=== PATIENT | female | born 1985 | race American Indian/Alaskan Native ===

== ENCOUNTER 2017-09-28 09:46 | Emergency (ER) | payer MEDICAID ==
[2017-09-28 09:52] VITALS: BP 108/61
[2017-09-28 10:18] LABS: Bilirubin,Urine NEG (Negative); Blood,Urine NEG (Negative); Ketones,Urine NEG (Negative); Leukocyte Esterase,Urine MOD (Negative); Mucus,Urine FEW /HPF; Nitrite,Urine NEG (Negative); Protein,Urine <15 mg/dL mg/dL (Negative); Urobilinogen,Urine < 2.0 mg/dL (<2.0)
[2017-09-28] MEDS ORDERED: TORADOL IV ONE (10:28)
[2017-09-28] MEDS ORDERED: ZOFRAN IV ONE (10:28)
[2017-09-28] MEDS ORDERED: NACL 0.9% 1000 ML 1,000 ML IV ONE (10:28)
--- NOTE | 2017-09-28 11:08 | Emergency Department Report ---
ED Abdominal Pain HPI - General Chief Complaint: Abdominal Pain Stated Complaint: NAUSEA, KIDNEY PROBLEMS Time Seen by Provider: 09/28/17 10:04 Source: patient Mode of arrival: Ambulatory Limitations: No Limitations - History of Present Illness Initial Comments: pt is a 32 y/o aaf with hx of renal stones requiring lithotripsy who presents with right cva tenderness with n/v x 4 days associated symptoms include urinary urgency frequency and dysuria ,pt denies fever or chills , nausea but no vomiting. MD Complaint: abdominal pain, flank pain Onset/Timin -: days(s) Location: bilateral flank Radiation: none Migration to: suprapubic Severity: moderate Severity scale (0 -10): 4 Quality: aching, sharp Consistency: constant Improves With: nothing Worsens With: other (voiding ) Associated Symptoms: nausea, dysuria. denies: vomiting, diarrhea, fever, constipation, hematemesis, hematochezia, melena, hematuria, anorexia, syncope - Related Data LMP Date: 09/22/17 LMP (females 10-50): 3 weeks Previous Rx's Medication Instructions Recorded Last Taken Type Fluconazole [Diflucan TAB] 150 mg PO ONCE #1 tablet 09/02/16 Unknown Rx HYDROcodone/APAP 5-325 [[place] 1 - 2 each PO Q6HR PRN #14 tablet 09/02/16 Unknown Rx 5/325] Promethazine [Phenergan TAB] 25 mg PO Q6HR PRN #20 tab 09/02/16 Unknown Rx Promethazine [Phenergan] 25 mg VT Q6HR PRN #10 supp.rect 09/02/16 Unknown Rx Sulfamethoxazole/Trimethoprim 1 each PO BID #20 tablet 09/02/16 Unknown Rx [Bactrim DS TAB] Cyclobenzaprine [Flexeril] 10 mg PO BID PRN #10 tablet 09/25/16 Unknown Rx Ibuprofen [Motrin] 600 mg PO Q8H PRN #20 tablet 09/25/16 Unknown Rx Cephalexin [Keflex] 500 mg PO BID #14 capsule 09/28/17 Unknown Rx traMADol [Ultram] 50 mg PO Q6HR PRN #20 tablet 09/28/17 Unknown Rx Allergies Allergy/AdvReac Type Severity Reaction Status Date / Time No Known Allergies Allergy Verified 03/19/16 10:53 ED Review of Systems ROS: Stated complaint: NAUSEA, KIDNEY PROBLEMS Other details as noted in HPI Constitutional: denies: chills, fever Eyes: denies: eye pain, eye discharge, vision change ENT: denies: ear pain, throat pain Respiratory: denies: cough, shortness of breath, wheezing Cardiovascular: denies: chest pain, palpitations Endocrine: no symptoms reported Gastrointestinal: nausea. denies: diarrhea, constipation, hematemesis, melena, hematochezia Genitourinary: urgency, dysuria, frequency. denies: hematuria, discharge, abnormal menses, dyspareunia Musculoskeletal: back pain. denies: joint swelling, arthralgia, myalgia Skin: denies: rash, lesions Neurological: denies: headache, weakness, paresthesias Psychiatric: denies: anxiety, depression Hematological/Lymphatic: denies: easy bleeding, easy bruising ED Past Medical Hx - Past Medical History Hx Heart Attack/AMI: No Hx Kidney Stones: Yes Hx Psychiatric Treatment: Yes (bipolar, schizophrenia, anxiety and depression) - Surgical History Additional Surgical History: tubal ligation, hidney stone removal - Social History Smoking Status: Never Smoker Substance Use Type: None - Medications Home Medications: Home Medications Medication Instructions Recorded Confirmed Last Taken Type Fluconazole [Diflucan TAB] 150 mg PO ONCE #1 tablet 09/02/16 Unknown Rx HYDROcodone/APAP 5-325 [[place] 1 - 2 each PO Q6HR PRN #14 tablet 09/02/16 Unknown Rx 5/325] Promethazine [Phenergan TAB] 25 mg PO Q6HR PRN #20 tab 09/02/16 Unknown Rx Promethazine [Phenergan] 25 mg [place] Q6HR PRN #10 supp.rect 09/02/16 Unknown Rx Sulfamethoxazole/Trimethoprim 1 each PO BID #20 tablet 09/02/16 Unknown Rx [Bactrim DS TAB] Cyclobenzaprine [Flexeril] 10 mg PO BID PRN #10 tablet 09/25/16 Unknown Rx Ibuprofen [Motrin] 600 mg PO Q8H PRN #20 tablet 09/25/16 Unknown Rx Cephalexin [Keflex] 500 mg PO BID #14 capsule 09/28/17 Unknown Rx traMADol [Ultram] 50 mg PO Q6HR PRN #20 tablet 09/28/17 Unknown Rx ED Physical Exam - General Limitations: No Limitations General appearance: alert, in no apparent distress - Head Head exam: Present: atraumatic, normocephalic - Eye Eye exam: Present: normal appearance - ENT ENT exam: Present: mucous membranes moist - Neck Neck exam: Present: normal inspection - Respiratory Respiratory exam: Present: normal lung sounds bilaterally. Absent: respiratory distress - Cardiovascular Cardiovascular Exam: Present: regular rate, normal rhythm. Absent: systolic murmur, diastolic murmur, rubs, gallop - GI/Abdominal GI/Abdominal exam: Present: soft, normal bowel sounds. Absent: distended, tenderness, guarding, rebound, rigid, organomegaly, mass, bruit, pulsatile mass , hernia - Expanded GI/Abdominal Exam Expanded GI/Abdominal exam: Present: other (bilat CVA tenderness ). Absent: psoas sign, obturator sign, heel tap sign, Morocho's sign, Rovsing's sign, tenderness at [place]'s Point, ascites - Rectal Rectal exam: Present: deferred - Extremities Exam Extremities exam: Present: normal inspection, full ROM, normal capillary refill. Absent: tenderness, pedal edema, joint swelling, calf tenderness - Back Exam Back exam: Present: normal inspection, full ROM, tenderness, CVA tenderness (R) , CVA tenderness (L). Absent: muscle spasm, paraspinal tenderness, vertebral tenderness, rash noted - Neurological Exam Neurological exam: Present: alert, oriented X3, CN II-XII intact, normal gait, reflexes normal. Absent: motor sensory deficit - Psychiatric Psychiatric exam: Present: normal affect, normal mood - Skin Skin exam: Present: warm, dry, intact, normal color. Absent: rash ED Course Vital Signs 09/28/17 09:50 Temperature 98.0 F Pulse Rate 66 Respiratory 18 Rate Blood Pressure 108/61 O2 Sat by Pulse 98 Oximetry ED Medical Decision Making - Lab Data Result diagrams: 09/28/17 11:19 09/28/17 11:19 Laboratory Tests 09/28/17 09/28/17 09/28/17 11:19 11:19 Unknown WBC 4.8 RBC 3.59 L Hgb 12.3 Hct 36.5 MCV 102 H MCH 34 H MCHC 34 RDW 12.8 L Plt Count 189 Lymph % (Auto) 44.8 H [place] % (Auto) 7.2 Eos % (Auto) 1.9 Baso % (Auto) 1.1 Lymph # 2.1 [place] # 0.3 Eos # 0.1 Baso # 0.1 Seg Neutrophils % 45.0 Seg Neutrophils # 2.1 Sodium 137 Potassium 4.2 Chloride 101.1 Carbon Dioxide 27 Anion Gap 13 BUN 8 Creatinine 0.7 Estimated GFR > 60 BUN/Creatinine Ratio 11 Glucose 84 Calcium 8.6 Total Bilirubin 0.30 AST 13 ALT 25 Alkaline Phosphatase 29 L Total Protein 6.7 Albumin 4.1 Albumin/Globulin Ratio 1.6 Urine Color Yellow Urine Turbidity Clear Urine pH 7.0 Ur Specific [place] 1.019 Urine Protein <15 mg/dl Urine Glucose (UA) Neg Urine Ketones Neg Urine Blood Neg Urine Nitrite Neg Ur Reducing Substances Not Reportable Urine Bilirubin Neg Urine Ictotest Not Reportable Urine Urobilinogen < 2.0 Ur Leukocyte Esterase Mod Urine WBC (Auto) 33.0 H Urine RBC (Auto) 5.0 U Epithel Cells (Auto) 10.0 Urine Mucus Few Urine HCG, Qual Negative - Radiology Data Radiology results: report reviewed, image reviewed bilat nonobstructing renal calculi no hydronephrosis no pyelo, 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" - Medical Decision Making pt is a 32 y/o aaf with hx of renal stones requiring lithotripsy who presents with right cva tenderness with n/v x 4 days associated symptoms include urinary urgency frequency and dysuria ,pt denies fever or chills , nausea but no vomiting exam: pt appears well nontoxic there is bilat cva tenderness no posterior point tenderness , abd soft nontender there is no vaginal discharge, labs: CBC: normal , CMP: normal , UA: pos leukocytes, WBC, HCG: negative, plan : dc to self with ultram, keflex, hydrate as direc follow up with urology at [place] as previously seen last year, pt verbalized agreement and understanding of same for dc to self at this time. Critical care attestation.: If time is entered above; I have spent that time in minutes in the direct care of this critically ill patient, excluding procedure time. ED Disposition Clinical Impression: Renal calculi UTI (urinary tract infection) Qualifiers: Urinary tract infection type: acute cystitis Hematuria presence: without hematuria Qualified Code(s): N30.00 - Acute cystitis without hematuria Disposition: DC- TO HOME OR SELFCARE Is pt being admited?: No Does the pt Need Aspirin: No Condition: Good Instructions: Abdominal Pain (ED), Kidney Stones (ED), Urinary Tract Infection in Women (ED) Additional Instructions: Follow up with [facility] as scheduled call to set up appointment [phone] [facility] [id number] . Prescriptions: Cephalexin [Keflex] 500 mg PO BID #14 capsule traMADol [Ultram] 50 mg PO Q6HR PRN #20 tablet PRN Reason: Pain Referrals: PRIMARY CARE, [Primary Care Provider] - 3-5 Days Forms: Work/School Release Form(ED) Time of Disposition: 12:37
[2017-09-28 11:30] LABS: Basophils % (Auto) 1.1 % (0.0-1.8); Eosinophils % (Auto) 1.9 % (0.0-4.3); Hematocrit 36.5 % (30.3-42.9); Hemoglobin 12.3 gm/dl (10.1-14.3); Mean Corpuscular HGB Conc 34 % (30-34); Mean Corpuscular Hemoglobin 34 pg (28-32); Mean Corpuscular Volume 102 fl (79-97); Platelet Count 189 K/mm3 (140-440); Red Blood Count 3.59 M/mm3 (3.65-5.03); Red Cell Distribution Width 12.8 % (13.2-15.2); White Blood Count 4.8 K/mm3 (4.5-11.0)
--- NOTE | 2017-09-28 11:42 | Cat Scan Report ---
CT ABDOMEN AND PELVIS WITHOUT CONTRAST INDICATION: Evaluate for renal stones. COMPARISON: 09/02/2016 FINDINGS: Noncontrast abdomen and pelvis CT performed. LUNG BASES: Borderline/slight cardiomegaly. Nonspecific distal esophageal wall prominence/thickening, not excluded for gastroesophageal reflux and/or hiatal hernia, amongst others. ABDOMEN: Please note that sensitivity to detect small visceral lesions is limited due to the absence of intravenous or oral contrast. 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 Another 3-4 mm indeterminate peripheral right hepatic hypodensity may also be present, axial image 74. Otherwise grossly unremarkable unenhanced spleen, gallbladder, pancreas, adrenals, aorta and IVC. No ascites or definite size significant adenopathy. Nonopacified GI tract evaluation limited, though grossly nonobstructive. Normal retrocecal appendix tip seen posterior to the right hepatic lobe inferior margin. Specifically, kidneys nonhydronephrotic bilaterally and demonstrate small 3 or 4 radiopaque calculi inferiorly on the right, the largest approximately 4 mm on axial image 139 while at least 2 left lower renal calculi also seen, the larger 4 mm, axial image 137. PELVIS: Grossly unremarkable uterus and urinary bladder. Probable bilateral Essure devices. Rectosigmoid stool. No free fluid or significant adenopathy. T12 superior endplate degenerative spurring again noted as also likely a transitional S1. CONCLUSION: No acute CT abnormality or significant interval change in nonobstructing bilateral renal calculi with various other incidental findings, as detailed above. Thank you for the opportunity to participate in this patient's care.
[2017-09-28 11:43] LABS: Alanine Aminotransferase 25 units/L (7-56); Albumin 4.1 g/dL (3.9-5); Albumin/Globulin Ratio 1.6 %; Alkaline Phosphatase 29 units/L (35-129); Anion Gap 13 mmol/L; BUN/Creatinine Ratio 11; Blood Urea Nitrogen 8 mg/dL (7-17); Calcium 8.6 mg/dL (8.4-10.2); Carbon Dioxide 27 mmol/L (22-30); Chloride 101.1 mmol/L (98-107); Glucose 84 mg/dL (65-100); Potassium 4.2 mmol/L (3.6-5.0); Sodium 137 mmol/L (137-145); Total Protein 6.7 g/dL (6.3-8.2)
== END 2017-09-28 13:31 | disposition home or self-care (01) ==
LOC: ED 09:46
DX: N30.00 Acute cystitis without hematuria (principal); N20.0 Calculus of kidney; F31.9 Bipolar disorder, unspecified; F20.9 Schizophrenia, unspecified
CPT/HCPCS: 36415; 74176; 80053; 81001; 81025; 85025; 96361; 96374; 96375; 99284; J1885; J2405; J7030